=== PATIENT | female | born 1950 | race Hispanic/Latino ===

== ENCOUNTER 2018-08-11 11:15 | Emergency (ER) | payer MEDICARE ==
[2018-08-11] MEDS ORDERED: IBUPROFEN PO ONE (11:22)
--- NOTE | 2018-08-11 11:22 | Emergency Department Report ---
Stated Complaint: MIGRAINE Time Seen by Provider: 08/11/18 11:19 - HPI History of Present Illness: migraine light hurts eyes nausea neurologist currently in [facility] withdrawal at [facility] 18 days rx pt dont know names psh none [facility] htn migraines anxiety depression mse completed MSE screening note: Focused history and physical exam performed. Due to findings the following was ordered: ED Disposition for MSE Condition: Stable
[2018-08-11 11:26] VITALS: BP 151/72
[2018-08-11] MEDS ORDERED: DECADRON IV ONE (13:22)
[2018-08-11] MEDS ORDERED: MORPHINE IV ONE (13:22)
[2018-08-11] MEDS ORDERED: NACL 0.9% 1000 ML 1,000 ML IV ONE (13:22)
[2018-08-11] MEDS ORDERED: ZOFRAN IV ONE (13:22)
--- NOTE | 2018-08-11 15:07 | Emergency Department Report ---
ED Headache HPI - General Chief Complaint: Headache Stated Complaint: MIGRAINE Time Seen by Provider: 08/11/18 11:19 Source: patient - History of Present Illness Timing/Duration: other (2 days) Quality: moderate Head Injury Location: global Recent Head Trauma: no recent headache/trauma, occasional headaches (hx of migraines) Associated Symptoms: nausea/vomiting, vision changes (aura), other (photophobia). denies: confusion, fatigue, facial pain, fever/chills, flushing, loss of consciousness, nasal congestion, nasal drainage, numbness in legs/feet, sinus infection, stiff neck, weakness Allergies/Adverse Reactions: Allergies No Known Allergies Allergy (Verified 08/11/18 12:34) Home Medications: Ambulatory Orders Ketorolac [Toradol] 10 mg PO Q6H PRN #12 tablet 08/11/18 Ondansetron [Zofran Odt] 4 mg PO Q8HR #10 tab.rapdis 08/11/18 ED Review of Systems ROS: Stated complaint: MIGRAINE Other details as noted in HPI Comment: All other systems reviewed and negative ED Past Medical Hx - Past Medical History Previous Medical History?: Yes Hx Hypertension: Yes Hx Psychiatric Treatment: Yes (anxiety, depression) - Surgical History Past Surgical History?: Yes Hx Cholecystectomy: Yes Additional Surgical History: gastric bypass, T&A, hysterectomy - Social History Smoking Status: Never Smoker Substance Use Type: Alcohol - Medications Home Medications: Home Medications Medication Instructions Recorded Confirmed Last Taken Type Ketorolac [Toradol] 10 mg PO Q6H PRN #12 tablet 08/11/18 Unknown Rx Ondansetron [Zofran Odt] 4 mg PO Q8HR #10 tab.rapdis 08/11/18 Unknown Rx ED Physical Exam - General Limitations: No Limitations General appearance: alert, in no apparent distress - Head Head exam: Present: atraumatic, normocephalic - Eye Eye exam: Present: normal appearance - ENT ENT exam: Present: mucous membranes moist - Neck Neck exam: Present: normal inspection - Respiratory Respiratory exam: Present: normal lung sounds bilaterally. Absent: respiratory distress, wheezes, rales, rhonchi - Cardiovascular Cardiovascular Exam: Present: regular rate, normal rhythm. Absent: systolic murmur, diastolic murmur, rubs, gallop - GI/Abdominal GI/Abdominal exam: Present: soft, normal bowel sounds. Absent: distended, tenderness, guarding, rebound - Extremities Exam Extremities exam: Present: normal inspection - Back Exam Back exam: Present: normal inspection - Neurological Exam Neurological exam: Present: alert, oriented X3 - Psychiatric Psychiatric exam: Present: normal affect, normal mood - Skin Skin exam: Present: warm, dry, intact, normal color. Absent: rash ED Course Vital Signs 08/11/18 11:21 Temperature 97.6 F Pulse Rate 57 L Respiratory 16 Rate Blood Pressure 151/72 Blood Pressure 151/72 [Right] O2 Sat by Pulse 98 Oximetry ED Medical Decision Making - Medical Decision Making Patient received IV fluids and meds for symptomatic relief. Patient started to feel improved and she'll be discharged home. Critical care attestation.: If time is entered above; I have spent that time in minutes in the direct care of this critically ill patient, excluding procedure time. ED Disposition Clinical Impression: Migraine Qualifiers: Migraine type: with aura Status migrainosus presence: without status migrainosus Intractability: not intractable Qualified Code(s): G43.109 - Migraine with aura, not intractable, without status migrainosus Disposition: - TO HOME OR SELFCARE Is pt being admited?: No Does the pt Need Aspirin: No Condition: Stable Instructions: Migraine Headache (ED) Additional Instructions: Note to the patient's treatment facility: For the patient's migraines she was given 2 mg of morphine 1. Referrals: [facility] [Other] - 3-5 Days Time of Disposition: 15:06
== END 2018-08-11 15:33 | disposition home or self-care (01) ==
LOC: ED 11:15
DX: G43.109 Migraine with aura, not intractable, without status migrainosus (principal); I10 Essential (primary) hypertension; Z90.49 Acquired absence of other specified parts of digestive tract; Z98.84 Bariatric surgery status; Z90.89 Acquired absence of other organs; Z90.710 Acquired absence of both cervix and uterus
CPT/HCPCS: 96361; 96374; 96375; 99283; J1100; J2270; J2405; J7030